=== PATIENT | female | born 1995 | race Caucasian/White ===

== ENCOUNTER → 2018-02-02 | Outpatient (CLI) | payer BC ==
--- NOTE | 2018-02-02 10:38 | XR ---
EXAMINATION TYPE: XR foot complete RT DATE OF EXAM: 02/02/2018 COMPARISON: NONE HISTORY: Pain TECHNIQUE: Three views are submitted. FINDINGS: There is a displaced oblique fracture of the distal fifth metatarsal. Remaining osseous structures in tact. No erosive changes. IMPRESSION: 1. Displaced fracture oblique orientation distal fifth metatarsal.
== END ==
LOC: RADXRMAIN 10:13
PROVIDERS: ATTEND Internal Medicine
DX: S92.351A Displaced fracture of fifth metatarsal bone, right foot, initial encounter for closed fracture (principal)

== ENCOUNTER 2021-12-09 15:29 | Inpatient (IN) | payer OTHER ==
[2021-12-09] MEDS ORDERED: OXYTOCIN 10 UNIT/ML 1 ML VIAL IM PRN (17:29)
[2021-12-09] MEDS ORDERED: METHYLERGONOVINE 0.2 MG/ML 1 ML AMP IM PRN (17:29)
[2021-12-09] MEDS ORDERED: TERBUTALINE 1 MG/ML VIAL SQ PRN (17:29)
[2021-12-09] MEDS ORDERED: LIDOCAINE 0.5% (PF) 5 MG/ML (50 ML SDV) SQ PRN (17:29)
[2021-12-09] MEDS ORDERED: CARBOPROST TROMETHAMINE 250 MCG/ML 1 ML AMP IM PRN (17:29)
[2021-12-09] MEDS: LACTATED RINGERS 1,000 ML IV SCH (17:37)
[2021-12-09 17:40] LABS: Basophils % (A) 0 %; Eosinophils # (A) 0.1 k/uL (0-0.7); Eosinophils % (A) 1 %; HCT 37.4 % (34.0-46.0); HGB 13.2 gm/dL (11.4-16.0); Lymphocytes # (A) 1.6 k/uL (1.0-4.8); Lymphocytes % (A) 20 %; MCH 31.6 pg (25.0-35.0); MCHC 35.3 g/dL (31.0-37.0); MCV 89.5 fL (80.0-100.0); Mean Platelet Volume 9.4; Monocytes # (A) 0.3 k/uL (0-1.0); Monocytes % (A) 4 %; Neutrophils # (A) 5.8 k/uL (1.3-7.7); Neutrophils % (A) 73 %; Platelet Count 211 k/uL (150-450); RBC 4.18 m/uL (3.80-5.40); RDW 14.3 % (11.5-15.5)
[2021-12-09] MEDS ORDERED: BUTORPHANOL 1 MG/ML 1 ML VIAL IV PRN (17:53)
--- NOTE | 2021-12-09 18:01 | P.HPOB ---
History of Present Illness H&P Date: 12/09/21 Chief Complaint: 37+ weeks, early active labor the patient is a 26-year-old 1 para 0 admitted at 37-4/7 weeks as established by last menstrual period and confirmed by second trimester ultrasound. She is admitted in early active labor with a category 1 heart rate tracing. Her has been complicated by gestational diabetes but diet control has been excellent. She also is known to be rubella nonimmune. On labor and delivery, all signs reassuring. Group B strep status is negative. Obstetrical history: 1 para 0 with current statistics listed in history of present illness. EDC of 12/27/2021 was established by last menstrual period and confirmed by second trimester ultrasound laboratory workup demonstrates a blood type of A+ with a negative antibody screen. Rubella status is nonimmune. Remainder of the laboratory workup was within normal limits. One hour Glucola was elevated at 215 making the diagnosis of gestational diabetes. As noted above, blood sugars appear to been excellent with diet control alone. Group B strep status is negative though not reported in her record. Gynecologic history: Unremarkable with no history of any infections to include STDs. Review of Systems review of systems is confined to history of present illness. Past Medical History Additional Past Medical History / Comment(s): PCOS, Gestational DM History of Any Multi-Drug Resistant Organisms: None Reported Past Surgical History: No Surgical Hx Reported Past Anesthesia/Blood Transfusion Reactions: No Reported Reaction Past Psychological History: No Psychological Hx Reported Smoking Status: Never smoker - Past Family History Mother History Unknown: Yes Family Medical History: Hypertension Father History Unknown: Yes Family Medical History: Diabetes Mellitus, Hypertension Brother(s) History Unknown: Yes Family Medical History: Renal Disease Medications and Allergies Home Medications Medication Instructions Recorded Confirmed Type Aspirin 81 mg PO DAILY 12/09/21 12/09/21 History Ferrous Sulfate [Iron] 325 mg PO DAILY 12/09/21 12/09/21 History Fexofenadine HCl [Tiffany Allergy] 60 mg PO DAILY 12/09/21 12/09/21 History Vit No.179/Iron/Folic 1 tab DAILY 12/09/21 12/09/21 History [ Tablet] metFORMIN HCL 500 mg PO DAILY 12/09/21 12/09/21 History Allergies Allergy/AdvReac Type Severity Reaction Status Date / Time No Known Allergies Allergy Verified 10/16/22 16:14 Exam Vital Signs Temp Pulse Resp BP Pulse Ox 12/09/21 15:59 97.7 F 96 18 128/81 97 Intake and Output 12/09/21 12/09/21 12/09/21 06:59 14:59 22:59 Other: Weight 78.471 kg in general, this is a well-developed, well-nourished white female in no acute distress though she is having some discomfort with contractions. Her heart has a regular rhythm and rate without murmur. Her lungs are clear to auscultation bilaterally in all purvis. Her abdomen is gravid, nondistended, has normal active bowel sounds, is soft, nontender, and without any palpable masses aside from uterine fundus. Her extremities are without any cyanosis, clubbing, or edema and are nontender to palpation bilaterally. Digital cervical examination demonstrates her cervix to 4-5 cm dilated, approximately 60% effaced, with the vertex in presentation at -2 station. Artificial rupture of membranes is carried out demonstrating clear fluid. Results Result Diagrams: 12/09/21 17:27 Assessment and Plan (1) Gestational diabetes Current Visit: Yes Status: Acute Code(s): O24.419 - GESTATIONAL DIABETES MELLITUS IN , UNSP CONTROL SNOMED Code(s): 87739478 (2) Active labor at term Current Visit: Yes Status: Acute Code(s): CNO0388 - SNOMED Code(s): 88153899 Plan: a blood sugar will be checked now and, if normal we'll not be rechecked as she has had excellent control throughout. She will have close maternal and surveillance and expectant management will be practiced. She is a good candidate for either IV or epidural analgesia. She has requested epidural which will be placed shortly.
[2021-12-09 18:06] LABS: Glucose,Whole Blood 77 mg/dL (70-110)
[2021-12-09] MEDS ORDERED: SODIUM CHLORIDE 0.9% 100 ML BAG ONE (18:21)
[2021-12-09] MEDS ORDERED: ROPIVACAINE 5 MG/ML 20 ML AMPULE ONE (18:21)
[2021-12-09] MEDS ORDERED: fentaNYL (PF) 50 MCG/ML 5 ML AMP ONE (18:21)
[2021-12-10] MEDS ORDERED: HYDROcodone/APAP 7.5-325MG 1 EACH TAB PO PRN (00:07)
[2021-12-10] MEDS ORDERED: diphenhydrAMINE 25 MG CAP PO PRN (00:07)
[2021-12-10] MEDS ORDERED: BENZOCAINE/MENTHOL SPRAY 1 GM/SPRAY AEROSOL TOPICAL PRN (00:07)
[2021-12-10] MEDS ORDERED: ZOLPIDEM 5 MG TAB PO PRN (00:07)
[2021-12-10] MEDS ORDERED: diphenhydrAMINE 50 MG CAP PO PRN (00:07)
[2021-12-10] MEDS ORDERED: SIMETHICONE 80 MG CHEWABLE PO PRN (00:07)
[2021-12-10] MEDS ORDERED: HYDROCORTISONE 2.5% RECTAL CREAM 30 GM TUBE RECTAL PRN (00:07)
[2021-12-10] MEDS ORDERED: HYDROcodone/APAP 5-325MG 1 EACH TAB PO PRN (00:07)
[2021-12-10] MEDS ORDERED: LANOLIN CREAM 5 GM TUBE TOPICAL PRN (00:07)
[2021-12-10] MEDS ORDERED: diphenhydrAMINE 50 MG/ML 1 ML VIAL IVP PRN ×2 (00:07)
--- NOTE | 2021-12-10 00:12 | P.PROBDLV ---
Vaginal Delivery Note - . Vaginal Delivery Note: the patient is a 26-year-old 1 para 0 admitted at 37-3/7 weeks by good dating parameters. She is admitted in early active labor with all signs reassuring, category 1 heart rate tracing. Her was complicated by gestational diabetes with very good diet control and reassuring testing after 32 weeks on a weekly basis. She additionally is known to be rubella nonimmune. On labor and delivery, she made cervical change in triage from 4-5 cm. She was admitted and underwent artificial rupture of membranes for clear fluid. An epidural catheter was placed shortly thereafter for analgesia. She made steady progress to the active phase of labor to complete and then pushed for approximately 1 hour to a normal spontaneous vaginal delivery of a viable 6 lbs. 11 oz. baby boy with Apgars of 9 at 1 minute and 9 at 5 minutes delivered in the direct occiput anterior position. There was a loose nuchal cord 1 which was reduced following delivery of the infant. The nose and mouth were thoroughly suctioned both on the perineum and immediately after delivery. The placenta was delivered spontaneously, intact, and grossly normal with a grossly normal, centrally inserted three-vessel cord. A small second-degree midline episiotomy had been cut for the delivery and was repaired in standard fashion using 3-0 chromic catgut without difficulty. Estimated blood loss for the case is approximately 100 mL. There were no complications. All sponge, instrument, and needle counts were correct. Both mother and infant are resting comfortably in recovery.
[2021-12-10] MEDS ORDERED: OXYTOCIN 30 UNITS/500 ML NS 30 UNIT in SALINE 1 500ML.BAG IV SCH (00:15)
[2021-12-10] MEDS: IBUPROFEN 600 MG TAB PO PRN ×2 (02:52→14:49)
--- NOTE | 2021-12-10 08:05 | P.PN ---
Subjective Progress Note Date: 12/10/21 Principal diagnosis: Doing well day #1 Slept well. No pain. Minimal lochia rubra. No complaints Objective - Vital Signs Vital signs: Vital Signs Temp 98.4 F 12/10/21 04:00 Pulse 62 12/10/21 04:00 Resp 16 12/10/21 04:00 BP 106/86 12/10/21 04:00 Pulse Ox 98 12/10/21 04:00 FiO2 Intake & Output 12/09/21 12/10/21 12/10/21 18:59 06:59 18:59 Output Total 485 Balance -485 Weight 78.471 kg Output: Estimated Blood Loss 200 Output, Quantitative 285 Blood Loss Other: # Voids 1 - Constitutional General appearance: Present: average body habitus, cooperative - EENT Eyes: Present: PERRLA ENT: Present: hearing grossly normal - Respiratory Respiratory: bilateral: CTA - Cardiovascular Rhythm: regular - Gastrointestinal Gastrointestinal Comment(s): Fundus firm, midline, symmetric, 18 week size, nontender General gastrointestinal: Present: normal bowel sounds - Integumentary Integumentary: Present: normal - Neurologic Neurologic: Present: CNII-XII intact - Musculoskeletal Musculoskeletal: Present: gait normal - Psychiatric Psychiatric: Present: A&O x's 3, appropriate affect, intact judgment & insight - Labs CBC & Chem 7: 12/09/21 17:27 Assessment and Plan Assessment: Doing well first day Plan: Continue routine care. Likely discharge home tomorrow. Time with Patient: Less than 30
[2021-12-10] MEDS: ACETAMINOPHEN TAB 325 MG TAB PO PRN ×2 (08:15→19:50)
[2021-12-10] MEDS: SENNOSIDES-DOCUSATE SODIUM 1 EACH TAB PO SCH ×2 (08:15→19:51)
[2021-12-10] MEDS ORDERED: MEASLES-MUMPS-RUBELLA VACC/PF 12,500 UNIT/0.5 ML VIAL SQ ONE (17:04)
[2021-12-10] MEDS: LACTATED RINGERS 1,000 ML IV SCH (20:52)
[2021-12-11 00:25] VITALS: RESP 16
[2021-12-11] MEDS: IBUPROFEN 600 MG TAB PO PRN (01:59)
[2021-12-11 06:40] LABS: Basophils % (A) 0 %; Eosinophils # (A) 0.1 k/uL (0-0.7); Eosinophils % (A) 1 %; HCT 35.4 % (34.0-46.0); HGB 12.1 gm/dL (11.4-16.0); Lymphocytes % (A) 22 %; MCH 31.3 pg (25.0-35.0); MCHC 34.1 g/dL (31.0-37.0); MCV 91.8 fL (80.0-100.0); Mean Platelet Volume 9.1; Monocytes # (A) 0.4 k/uL (0-1.0); Monocytes % (A) 4 %; Neutrophils # (A) 6.5 k/uL (1.3-7.7); Neutrophils % (A) 72 %; Platelet Count 185 k/uL (150-450); RBC 3.85 m/uL (3.80-5.40); WBC 9.1 k/uL (3.8-10.6)
[2021-12-11 07:57] VITALS: BP 113/71; PULSE 65; TEMP 97.5
[2021-12-11] MEDS: ACETAMINOPHEN TAB 325 MG TAB PO PRN (08:33)
[2021-12-11] MEDS: SENNOSIDES-DOCUSATE SODIUM 1 EACH TAB PO SCH (08:33)
--- NOTE | 2021-12-11 08:37 | P.DS ---
Providers Date of admission: 12/09/21 17:01 Expected date of discharge: 12/11/21 Attending physician: Johanna Alas Primary care physician: Stated None Hospital Course: This is a 26-year-old female 1 para 0 EDC 12/27/2021 at 37-3/7 weeks' gestation who presented from home with spontaneous amniorrhexis, clear fluid, in active labor. unremarkable, blood type A positive, rubella status nonimmune, group B strep cultures negative. Please see dictated history and physical for details. Patient went on to rather swiftly deliver vaginally a liveborn male infant with scores of 9 and 9 at one and 5 minutes respectively. He weighed 3020 g or 6 lbs. 10 oz. There was a second-degree midline episiotomy easily repaired. Please see dictated delivery note for details. This morning the patient is doing well. She is voiding, ambulating, passing flatus without difficulty. Vital signs are stable and she is afebrile. Breast- feeding is going well. Perineal body is clean and dry. Minimal lochia rubra. Patient is judged to be in very good condition for discharge home. She will follow-up with me in the office in 6 weeks. I discussed with her options of contraception and we will discuss this further in the office. No intercourse, tampons or bleeding. She will call with any fevers shakes or chills, foul smelling or copious lochia, with any pain not alleviated by [id number] products, or indeed with any concerns. Mosby infant has been circumcised and is doing well, he will follow up with chainstitch binder as per recommendations Assessment: Doing well first post day Patient Condition at Discharge: Good Plan - Discharge Summary Discharge Rx Participant: No New Discharge Prescriptions: No Action metFORMIN HCL 500 mg PO DAILY Fexofenadine HCl [Tiffany Allergy] 60 mg PO DAILY Ferrous Sulfate [Iron] 325 mg PO DAILY Aspirin 81 mg PO DAILY Vit No.179/Iron/Folic [ Tablet] 1 tab DAILY Discharge Medication List Aspirin 81 mg PO DAILY 12/09/21 [History] Ferrous Sulfate [Iron] 325 mg PO DAILY 12/09/21 [History] Fexofenadine HCl [Tiffany Allergy] 60 mg PO DAILY 12/09/21 [History] Vit No.179/Iron/Folic [ Tablet] 1 tab DAILY 12/09/21 [History] metFORMIN HCL 500 mg PO DAILY 12/09/21 [History] Follow up Appointment(s)/Referral(s): Johanna Alas MD [STAFF PHYSICIAN] - 6 Weeks Discharge Disposition: HOME SELF-CARE
== END 2021-12-11 11:11 | disposition home or self-care (01) | DRG 807 ==
LOC: FBPOP 15:29 → 4FBP 17:01
PROVIDERS: ADMIT Obstetrics & Gynecology; ATTEND Obstetrics & Gynecology
PROC: 10E0XZZ Delivery of Products of Conception, External Approach (ICD-10-PCS; principal; 2021-12-10)
PROC: 0KQM0ZZ Repair Perineum Muscle, Open Approach (ICD-10-PCS; 2021-12-10)
DX: O24.410 Gestational diabetes mellitus in pregnancy, diet controlled (principal); Z37.0 Single live birth; O69.81X0 Labor and delivery complicated by cord around neck, without compression, not applicable or unspecified; O70.1 Second degree perineal laceration during delivery; Z3A.37 37 weeks gestation of pregnancy; Z79.82 Long term (current) use of aspirin; Z79.84 Long term (current) use of oral hypoglycemic drugs
CPT/HCPCS: 59025; 83036; 85025; 86850; 86900; 86901; 90471; 90707; 99213

== ENCOUNTER → 2023-01-09 | Outpatient (CLI) | payer OTHER ==
--- NOTE | 2023-01-09 07:38 | US ---
EXAMINATION TYPE: US gallbladder DATE OF EXAM: 01/09/2023 COMPARISON: NONE CLINICAL INDICATION: Female, 27 years old with history of R10.13 abd pain; intermittent diarrhea sinc e of her child 1 yr ago TECHNIQUE: Multiple sonographic images of the right upper quadrant are obtained. FINDINGS: EXAM MEASUREMENTS: Liver Length: 15.3 cm Gallbladder Wall: 0.2 cm CBD: 0.5 cm Right Kidney: 11.5x3.6x4.7 cm FILLER PICKER NOTES: Pancreas: Tail obscured by overlying bowel gas Liver: increased echogenicity Gallbladder: wnl Evidence for sonographic Oneil's sign: No CBD: wnl Right Kidney: wnl IMPRESSION: 1. Some mild fatty infiltration liver may be present. 2. Right upper quadrant ultrasound otherwise unremarkable.
== END | disposition home or self-care (01) ==
LOC: RADUSWWP 06:53
PROVIDERS: ATTEND Internal Medicine
DX: K59.1 Functional diarrhea (principal); R10.13 Epigastric pain
CPT/HCPCS: 76705

== ENCOUNTER 2024-09-13 20:54 | Inpatient (IN) | payer OTHER ==
[2024-09-13] MEDS ORDERED: OXYTOCIN 10 UNIT/ML 1 ML VIAL IM PRN (21:58)
[2024-09-13] MEDS ORDERED: CARBOPROST TROMETHAMINE 250 MCG/ML 1 ML AMP IM PRN (21:58)
[2024-09-13] MEDS ORDERED: TRANEXAMIC 1,000 MG/100ML-NACL 1,000 MG in EMPTY BAG 1 BAG IV PRN (21:58)
[2024-09-13] MEDS ORDERED: METHYLERGONOVINE 0.2 MG/ML 1 ML AMP IM PRN (21:58)
[2024-09-13 22:32] LABS: Basophils # (A) 0.02 10*3/uL (0.00-0.10); Basophils % (A) 0.3 %; Eosinophils # (A) 0.04 10*3/uL (0.04-0.35); Eosinophils % (A) 0.6 %; HCT 37.1 % (37.2-46.3); HGB 12.8 g/dL (12.0-15.0); Lymphocytes # (A) 1.71 10*3/uL (0.90-5.00); Lymphocytes % (A) 25.2 %; MCH 31.5 pg (27.0-32.0); MCHC 34.5 g/dL (32.0-37.0); MCV 91.4 fL (80.0-97.0); Monocytes # (A) 0.45 10*3/uL (0.20-1.00); Monocytes % (A) 6.6 %; Neutrophils # (A) 4.54 10*3/uL (1.80-7.70); Neutrophils % (A) 67.0 %; Platelet Count 211 10*3/uL (140-440); RBC 4.06 10*6/uL (4.10-5.20); RDW 14.3 % (11.5-14.5); WBC 6.78 10*3/uL (4.50-10.00)
[2024-09-13] MEDS: CITRIC ACID-SODIUM CITRATE 15 ML CUP PO ONE (22:33)
--- NOTE | 2024-09-13 22:33 | P.HPOB ---
History of Present Illness H&P Date: 09/13/24 Chief Complaint: Contractions Ms. Khan is a 29 year old at 36 weeks and 4 days with EDC of 10/07/2024 by 10 week US who presents in labor with regular uterine contractions, making cervical change from 3 to 4 centimeters dilation. Her has been complicated by diet-controlled gestational diabetes with good control. 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 She is at significant risk of retinal detachment with valsalva, therefore she is scheduled for a primary section on October 01. The fetus is estimated to weigh in the 33%ile based on a 33 week growth US. labs: blood type A positive, antibody screen negative, rubella immune, VDRL non-reactive, HBsAg negative, HIV negative, HCV non-reactive, gonorrhea negative, chlamydia negative, GBS negative. s/p Tdap. Past Medical History Additional Past Medical History / Comment(s): PCOS, Gestational DM History of Any Multi-Drug Resistant Organisms: None Reported Past Surgical History: No Surgical Hx Reported Past Anesthesia/Blood Transfusion Reactions: No Reported Reaction Smoking Status: Never smoker - Past Family History Mother History Unknown: Yes Family Medical History: Hypertension Father History Unknown: Yes Family Medical History: Diabetes Mellitus, Hypertension Brother(s) History Unknown: Yes Family Medical History: Renal Disease Medications and Allergies Home Medications Medication Instructions Recorded Confirmed Type Aspirin 81 mg PO DAILY 12/09/21 09/13/24 History Vit No.179/Iron/Folic 1 tab PO DAILY 12/09/21 09/13/24 History [ Tablet] metFORMIN HCL 500 mg PO BID 12/09/21 09/13/24 History Sertraline [Zoloft] 100 mg PO DAILY 09/13/24 09/13/24 History Allergies Allergy/AdvReac Type Severity Reaction Status Date / Time No Known Allergies Allergy Verified 12/09/21 16:14 Exam Intake and Output 09/13/24 09/13/24 09/13/24 06:59 14:59 22:59 Other: Weight 71.668 kg Focused physical exam is performed. This is a healthy-appearing in no apparent distress. Breathing is non-labored. Abdomen is gravid and non-tender. Cervical exam is 4/80/-2. Membranes intact. Extremities non-tender and non- edematous. heart tones are Category I and tocometer is graphing contractions every 2-4 minutes. Assessment and Plan Assessment: 29 year old at 36 weeks and 4 days in labor, scheduled for primary section for history of retinal degeneration during second stage Plan: Admit, NPO, initiate protocol
[2024-09-13] MEDS: LACTATED RINGERS 1,000 ML IV SCH (22:34)
[2024-09-13] MEDS ORDERED: PHENYLEPHRINE-0.9% NACL SYG 1,000 MCG/10 ML SYRINGE ONE (22:40)
[2024-09-13] MEDS ORDERED: OXYTOCIN 30 UNITS/500 ML NS BAG IV ONE (22:40)
[2024-09-13] MEDS ORDERED: KETOROLAC 15 MG/ML 1 ML VIAL ONE (22:40)
[2024-09-13] MEDS ORDERED: NALBUPHINE (ANES) 10 MG/ML - 1 ML AMP ONE (22:40)
[2024-09-13] MEDS ORDERED: MORPHINE SULFATE (PF) 0.3 MG/0.3 ML SYR ONE (22:40)
[2024-09-13] MEDS ORDERED: ONDANSETRON 4 MG/2 ML VIAL ONE (22:40)
[2024-09-13] MEDS ORDERED: ONDANSETRON 4 MG/2 ML VIAL IVP PRN (23:32)
[2024-09-13] MEDS ORDERED: SIMETHICONE 80 MG CHEWABLE PO PRN (23:32)
[2024-09-13] MEDS ORDERED: diphenhydrAMINE 25 MG CAP PO PRN (23:32)
[2024-09-13] MEDS ORDERED: METOCLOPRAMIDE 5 MG/ML 2 ML VIAL IVP PRN (23:32)
[2024-09-13] MEDS ORDERED: diphenhydrAMINE 50 MG/ML 1 ML VIAL IVP PRN ×2 (23:32)
[2024-09-13] MEDS ORDERED: ZOLPIDEM 5 MG TAB PO PRN (23:32)
[2024-09-13] MEDS ORDERED: NALOXONE 0.4 MG/ML 1 ML VIAL IV PRN (23:32)
--- NOTE | 2024-09-13 23:32 | P.OP ---
Date of Procedure: 09/13/24 Preoperative Diagnosis: 1. at 36 weeks and 4 days 2. 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 Khan is a 29 year old at 36 weeks and 4 days presenting in labor. She is scheduled for a primary section on 10/01 due to history of retinal lattice degeneration due to valsalva in the second stage. An shared decision was made between the patient and Dr. Lee to delivery via primary section this time to avoid the significant risk of retinal detachment. The risks, benefits, and alternatives to section were discussed with the patient including risk of bleeding, infection, damage to surrounding structures including bladder/bowels/ureters, and post-operative VTE. The patient understands these risks and desires to proceed with section. Operative Findings: Colorless amniotic fluid. Viable female . Apgars 9/9. Weight 5#9oz (2510 grams). Normal uterus, bilateral fallopian tubes, and ovaries. Description of Procedure: The patient was taken back to the operating room where spinal anesthesia was found to be adequate. Two grams of Ancef were given for infection prophylaxis. She was prepared and draped in the dorsal supine position with a leftward tilt. A Pfannenstiel skin incision was made with the scalpel. The incision was carried down to the fascia with a bovie. The fascia was incised and extended laterally with Naranjo scissors. The superior aspect of the fascia was grasped with the Melinda clamps. The underlying rectus muscle was dissected off sharply with Naranjo scissors. In a similar fashion, the inferior aspect of the fascia was elevated with Melinda clamps and the rectus muscle and pyramidalis were dissected off. Excellent hemostasis was achieved with the bovie. The rectus muscle was in the midline down to the level of the pubic symphysis. Pre- peritoneal fatty tissue was bluntly dissected to expose the peritoneum. The peritoneum was found to be free of adherent bowel and entered sharply with Naranjo scissors. The peritoneal incision was extended superiorly and inferiorly to the bladder reflection with good visualization of the bladder. The bladder blade was inserted and vesicouterine peritoneum was identified. Intraabdominal survey revealed scant, clear peritoneal fluid and the thinned-out lower uterine segment.The bladder blade was repositioned to keep the bladder out of the operative field. The lower uterine segment was incised with a scalpel. The amniotic sac was ruptured with an Allis clamp and clear fluid was noted. The uterine incision was extended bluntly with lateral and upward traction. The fetus was in cephalic presentation. The head was elevated out of the pelvis with special attention paid to avoid using the uterine incision as a fulcrum. Gentle fundal pressure was applied once the head was brought into the incision. The infant was delivered with no difficulty and was noted to be crying spontaneousl y. The mouth and nose were suctioned with a bulb. The cord was clamped and cut. The infant was handed off to the brush machine setter. IV oxytocin was initiated to facilitate uterine contractions. The placenta was delivered intact with manual massage of uterine fundus. The uterus was then exteriorized and the inside of the uterus was gently wiped with a lap sponge to assure complete removal of placental membranes. The uterine incision was closed with 0-Vicryl suture in a running locked fashion. A second imbricating layer was placed with 0-Vicryl. The ovaries and tubes were found to be normal. The uterus, tubes, and ovaries were then gently returned to the abdominal cavity. The abdomen was copiously suction irrigated. The uterine incision was reinspected and excellent hemostasis was noted. The fascial layer was closed with a 0-Vicryl suture. The subcutaneous tissue was reapproximated with 2-0 Plain Gut. The skin was closed with 4-0 Monocryl in a subcuticular fashion.The patient tolerated the procedure well. All the counts were correct times two. The patient was taken to the recovery room in a stable condition. A physician office assistant was utilized for the entire procedure due to the nee d for tissue retraction, dissection of vital structures, prevention and management of blood loss, and reduction in overall operative and anesthesia time as is the standard of care.
[2024-09-14] MEDS: KETOROLAC 15 MG/ML 1 ML VIAL IVP SCH (05:47)
[2024-09-14 07:28] LABS: Basophils # (A) 0.03 10*3/uL (0.00-0.10); Basophils % (A) 0.4 %; Eosinophils # (A) 0.03 10*3/uL (0.04-0.35); Eosinophils % (A) 0.4 %; HCT 32.6 % (37.2-46.3); HGB 11.3 g/dL (12.0-15.0); Lymphocytes # (A) 1.63 10*3/uL (0.90-5.00); Lymphocytes % (A) 20.9 %; MCH 31.6 pg (27.0-32.0); MCHC 34.7 g/dL (32.0-37.0); MCV 91.1 fL (80.0-97.0); Monocytes # (A) 0.46 10*3/uL (0.20-1.00); Monocytes % (A) 5.9 %; Neutrophils # (A) 5.64 10*3/uL (1.80-7.70); Neutrophils % (A) 72.3 %; Platelet Count 167 10*3/uL (140-440); RBC 3.58 10*6/uL (4.10-5.20); RDW 13.9 % (11.5-14.5); WBC 7.80 10*3/uL (4.50-10.00)
--- NOTE | 2024-09-14 08:14 | P.PNOBGPC ---
Subjective - Subjective Patient reports: Reports appetite normal, Reports voiding normally, Reports pain well controlled, Reports ambulating normally : doing well, nursing well Objective - Vital Signs Latest vital signs: Vital Signs Temp Pulse Resp BP Pulse Ox 09/14/24 04:00 97.7 F 66 16 105/63 96 09/14/24 01:47 97.6 F 60 16 112/71 100 09/14/24 01:32 61 18 115/65 99 09/14/24 01:17 62 16 128/76 99 09/14/24 01:02 60 16 123/63 97 09/14/24 00:47 59 L 16 132/69 97 09/14/24 00:32 65 16 116/57 95 09/14/24 00:17 65 16 141/64 97 09/14/24 00:02 65 16 136/69 98 09/13/24 23:47 96.7 F L 67 16 119/74 09/13/24 21:58 96.5 F L 96 16 120/71 100 Intake and Output 09/13/24 09/14/24 09/14/24 22:59 06:59 14:59 Output Total 740 Balance -740 Output: Urine 100 Output, Quantitative 640 Blood Loss Other: Voiding Method Indwelling Catheter Weight 71.668 kg - Exam Extremities: Present: normal Abdomen: Present: normal appearance, soft. Absent: distention, tenderness Incision: Present: normal, dry, intact Uterus: Present: normal, firm (The uterine fundus is tonic and minimally tender below the umbilicus.) - Labs Labs: Abnormal Lab Results - Last 24 Hours (Table) 09/13/24 09/14/24 Range/Units 22:10 06:51 RBC 4.06 L 3.58 L (4.10-5.20) 10*6/uL Hgb 11.3 L (12.0-15.0) g/dL Hct 37.1 L 32.6 L (37.2-46.3) % Eosinophils # 0.03 L (0.04-0.35) 10*3/uL Assessment and Plan (1) Status post section Current Visit: Yes Status: Acute Code(s): Z98.891 - HISTORY OF UTERINE SCAR FROM PREVIOUS SURGERY SNOMED Code(s): 592342236 Plan: Continue routine and postoperative care. I have encouraged the patient ambulate in the hallways routinely. I would anticipate discharge home tomorrow pending no complications.
--- NOTE | 2024-09-14 08:52 | P.PN ---
Progress Note - Text Progress Note Date: 09/14/24 Postoperative day 1 status post section under spinal anesthesia, and intrathecal morphine given for postoperative analgesia, patient doing well, there is no anesthesia related complications, Patient had no headache, vital signs stable , Assessment and plan= postop day 1 status post , doing well there is no anesthesia related complication.
[2024-09-14] MEDS: ACETAMINOPHEN TAB 500 MG TAB PO SCH (09:01)
[2024-09-14] MEDS: SENNOSIDES-DOCUSATE SODIUM 1 EACH TAB PO SCH (09:01)
[2024-09-14] MEDS: LACTATED RINGERS 1,000 ML IV SCH (17:29)
[2024-09-15] MEDS: IBUPROFEN 800 MG TAB PO SCH (02:06)
--- NOTE | 2024-09-15 07:16 | P.DS ---
Providers Date of admission: 09/13/24 21:54 Expected date of discharge: 09/15/24 Attending physician: Meng Lee Primary care physician: Stated None - Discharge Diagnosis(es) (1) Status post section Current Visit: Yes Status: Acute Hospital Course: The patient is a 29-year-old 2 para 1-0-0-1 admitted at 36-4/7 weeks by good dating parameters. She is admitted in early labor with all signs reassuring. Her has been complicated by diet-controlled gestational diabetes with good control using diet alone. testing has been reassuring on a weekly basis since 32 weeks. She otherwise has a history of having had some issues with her eyes with her first causing lattice degeneration requiring retinal surgery and is at significant risk of retinal detachment if she was to have a significant Valsalva. As a result, we have opted for elective primary low-transverse section. She was initially scheduled at 39 weeks but presents in labor today. She was taken to the operating room where she was delivered of a viable 5 pound 9 ounce baby girl with Apgars of 9 at 1 minute and 9 at 5 minutes. Her and postoperative course was unremarkable with vital signs remaining stable and her temperature was afebrile throughout. She was deemed stable for discharge on and postoperative day #2. She was discharged home to follow-up in the office in 2 weeks for an incision check in 6 weeks routinely. Discharge instructions included calling for any significantly increased bleeding or foul- smelling lochia, significantly increased fever abdominal pain, perineal complaints, breast complaints, incisional complaints, or anything else that concerned her. She was additionally instructed to have nothing in the vagina for at least 6 weeks time to include intercourse. She understood her instructions and agrees to follow-up as noted above. Discharge medications included [id number] analgesic pain medications as well as continued vitamins as she is breast-feeding. She was provided a prescription for oxycodone 5 mg, 1-2 p.o. every 6 hours as needed pain, #20 dispensed with no refills. Maternal blood type is A+ and rubella status is immune. Discharge hemoglobin and hematocrit were 11.3 and 32.6 respectively. Procedures: #1. Elective primary low-transverse section Patient Condition at Discharge: Stable Plan - Discharge Summary New Discharge Prescriptions: No Action metFORMIN HCL 500 mg PO BID Aspirin 81 mg PO DAILY Vit No.179/Iron/Folic [ Tablet] 1 tab PO DAILY Sertraline [Zoloft] 100 mg PO DAILY Discharge Medication List Aspirin 81 mg PO DAILY 12/09/21 [History] Vit No.179/Iron/Folic [ Tablet] 1 tab PO DAILY 12/09/21 [History] metFORMIN HCL 500 mg PO BID 12/09/21 [History] Sertraline [Zoloft] 100 mg PO DAILY 09/13/24 [History] Follow up Appointment(s)/Referral(s): Meng Lee MD [STAFF PHYSICIAN] - 10/27/24 1:15 pm (Post C/S Appointment with Tia Hare 09-27-2024 at 11:15am) Discharge Disposition: HOME SELF-CARE
[2024-09-15 08:52] VITALS: BP 101/65; PULSE 64; RESP 16; TEMP 97.8
== END 2024-09-15 14:50 | disposition home or self-care (01) | DRG 788 ==
LOC: FBPOP 20:54 → 4FBP 21:54
PROVIDERS: ADMIT Obstetrics & Gynecology; ATTEND Obstetrics & Gynecology
PROC: 10D00Z1 Extraction of Products of Conception, Low, Open Approach (ICD-10-PCS; principal; 2024-09-13 22:56)
DX: O99.892 Other specified diseases and conditions complicating childbirth (principal); O24.420 Gestational diabetes mellitus in childbirth, diet controlled; Z37.0 Single live birth; Z3A.36 36 weeks gestation of pregnancy; Z79.84 Long term (current) use of oral hypoglycemic drugs; Z79.899 Other long term (current) drug therapy; Z79.82 Long term (current) use of aspirin; Z86.69 Personal history of other diseases of the nervous system and sense organs; Z82.49 Family history of ischemic heart disease and other diseases of the circulatory system; Z83.3 Family history of diabetes mellitus
CPT/HCPCS: 59025; 85025; 86850; 86900; 86901; 99213